=== PATIENT | female | born 1990 | race Caucasian/White ===

== ENCOUNTER 2016-11-25 19:05 | Emergency (ER) | payer OTHER, MEDICAID ==
[~2016-11-25] VITALS: Ht 170.2 cm; Wt 88.6 kg
[~2016-11-25 19:05] MED LIST: AMOXICILLIN 8751 TAB PO; ANTIBIOTIC; BIO-CEF500 MG PO; CEFTIN 250250 MG/TAB PO; CILOXAN .3% EY2.5 ML OP; CLARITIN D TAB1 TAB PO; CLEOCIN HC150 MG/CAP PO; FLAGYL500 MG PO; FLONASEALLERGY NS; IMPLANON68 MG ID; LANSINOH FOR BR1 OIN TP; LEXAPRO 10MG10 MG PO; LORTAB 5/500 501 TAB PO; MACROBID 1100 MG/CAP PO; MUCINEX 60600 MG/TA1 PO; NAPROSYN500 MG PO; NATURE'S BLE1000 MCG PO; NORTREL 35 MCG-1 TA1 PO; PERCOCET 325 MG1 TA2 PO; PRENATAL1 TA1 PO; PREPARATION H30 GM RC; PROCARDIA XL 3030 MG PO; PYRIDIUM200 M1 PO; SENOKOT S 50 MG1 TAB PO; SUDAFED 12 HOU120 MG PO; VITAMIN C500 MG PO; WOMEN'S DAILY F1 TAB PO; ZOFRAN ODT4 MG PO; ZOVIRAX 200MG200 MG PO; ZYRTEC 10MG10 MG PO
[2016-11-25 19:09] VITALS: TEMP 98
[2016-11-25] MEDS ORDERED: VITAMIN C500 MG (19:12)
[2016-11-25] MEDS ORDERED: NAPROSYN500 MG (19:13)
[2016-11-25 22:08] VITALS: BP 123/84; PULSE 73
== END 2016-11-25 22:14 | disposition home or self-care (01) ==
LOC: COL.ER 19:05
DX: S46.912A Strain of unspecified muscle, fascia and tendon at shoulder and upper arm level, left arm, initial encounter (principal); S70.02XA Contusion of left hip, initial encounter; V43.52XA Car driver injured in collision with other type car in traffic accident, initial encounter; Y92.414 Local residential or business street as the place of occurrence of the external cause
CPT/HCPCS: J1885

== ENCOUNTER → 2017-01-18 | Outpatient (CLI) | payer OTHER, MEDICAID ==
[~2017-01-18] MED LIST changes: +NAPROSYN500 MG; +VITAMIN C500 MG
== END ==
LOC: COL.RAD 10:26
DX: R07.89 Other chest pain (principal)